=== PATIENT | male | born 1935 | race Caucasian/White ===

== ENCOUNTER 2017-10-04 12:06 | Day surgery (SDC) | payer MEDICARE, OTHER ==
[~2017-10-04 12:06] MED LIST: NORMAL SALINE 1,000 ML IV PRN
--- NOTE | 2017-10-04 13:56 | OR ---
Operative Report - Dictated Report Narrative: Procedure performed: TRUS guided prostate biopsy Anesthesia: IV/Mac Preoperative diagnosis : elevated PSA Postoperative diagnosis: Same Description of procedure: Preoperative antibiotics administered. Consent obtained. Patient positioned in the left lateral decubitus position. Probe inserted. Measurements taken. Prostate volume: 85 grams Biopsies were then obtained from either side directed laterally from the base, mid, and apical portions of the gland. Total biopsies right: 6 Total biopsies left: 6 Findings: Normal seminal vesicles. On the right side mid gland/medial close to probe was a very small focal hyperechoic area. Both sides on the bases were bit hypoechoic compared to rest of gland. No other abnormalities. Biopsies were directed at these areas in the process. EBL: 0cc Specimen: prostate Condition: tolerated procedure Follow up: If negative follow-up will be 6 months with PSA. More than likely at that point I will discontinue PSA screening altogether and simply continue with exam. If positive he will see me sooner for counseling.
[2017-10-04 15:31] VITALS: BP 165/93
== END 2017-10-04 12:07 | disposition home or self-care (01) ==
LOC: AMB 12:06
PROVIDERS: ATTEND Urology
PROC: 0VB07ZX Excision of Prostate, Via Natural or Artificial Opening, Diagnostic (ICD-10-PCS; principal; 2017-10-04 13:00)
DX: R97.20 Elevated prostate specific antigen [PSA] (principal)

== ENCOUNTER 2018-11-11 15:20 | Inpatient (IN) ==
[2018-11-11 15:38] LABS: Hematocrit 44.5 % (42.0-52.0); Hemoglobin 15.5 gm/dL (13.5-18.0); Mean Cell Volume 103.7 fl (78-100); Mean Corpuscular Hemoglobin 36.1 pg (27-31); Mean Corpuscular Hgb Conc 34.8 g/dl (32-36); Mean Platelet Volume 9.9 fl (8-11.3); Neutrophil % 62.7 % (42-75.0); Platelet Count 121 K/mm3 (150-450); Red Blood Count 4.29 M/mm3 (4.7-6.0); Red Cell Distribution Width 13.6 % (11.5-14.0); White Blood Count 6.3 K/mm3 (4.0-10.5)
[2018-11-11 15:55] LABS: ALT 56 U/L (19-67); AST 54 U/L (0-48); Albumin * 3.4 gm/dl (3.4-5.0); Alkaline Phosphatase * 70 U/L (50-170); Anion Gap 15.4 mmol/L (6.8-13.8); BUN/Creatinine Ratio 12.6 (9.0-21.6); Bilirubin, Total 1.3 mg/dL (0.0-1.1); Blood Urea Nitrogen 11 mg/dL (6-23); Ca. Corrected For Albumin 9.2 mg/dL (8.4-10.2); Carbon Dioxide 28.2 mmol/L (24-32.6); Chloride 100 mmol/L (97-106); Glucose * 112 mg/dL (70-110); Potassium 3.6 mmol/L (3.4-4.6); Sodium 140 mmol/L (132-142); Total Protein 6.7 gm/dL (6.2-8.2); Troponin I Less than 0.017 ng/mL (0.00-0.10)
--- NOTE | 2018-11-11 15:56 | ERNOTE ---
Medical Problem HPI - Narrative Date of Service: 11/11/18 - General Chief Complaint: General Assessment Time Seen by Provider: 11/11/18 15:30 Source: patient, family, RN notes reviewed, old records Exam Limitations: dementia - Immun/Allergies/Home Medications Immunizations: IMMUNIZATION HX Immunizations Up to Date No History of Influenza Vaccine Yes Hx Pneumococcal Vaccination No Allergies/Adverse Reactions: Allergies bacitracin [From Triple Antibiotic] Adverse Reaction (Intermediate, Verified 11/11/18 15:26) Other neomycin [From Triple Antibiotic] Adverse Reaction (Intermediate, Verified 11/11/18 15:26) Other redness, itching, burning polymyxin B [From Triple Antibiotic] Adverse Reaction (Intermediate, Verified 11/11/18 15:26) Other Seasonal Allergies Allergy (Intermediate, Uncoded 11/11/18 15:26) rhinitis, watery eyes bruit deodorant Adverse Reaction (Intermediate, Uncoded 11/11/18 15:26) Redness Home Medications: HOME MEDICATIONS cyanocobalamin (vit B-12) 1,000 mcg tablet 1,000 mcg PO DAILY 06/04/18 [Last Taken Unknown] lisinopril 40 mg tablet 40 mg PO DAILY #90 tab 06/20/18 [Last Taken Unknown] tamsulosin 0.4 mg capsule 0.4 mg PO DAILY #90 cap 10/19/18 [Last Taken Unknown] Calcium Carbonate/Vitamin D3 [Calcium 500 mg-Vit D3 600 Unit] 1 tab.chew PO DAILY 11/09/18 [Last Taken Unknown] Vitamin E 1,000 units PO DAILY 11/09/18 [Last Taken Unknown] Amox Tr/Potassium Clavulanate [Augmentin 875-125 Tablet] 875 mg PO Q12H #20 tab 11/10/18 [Last Taken Unknown] - History of Present History Narrative: Patient was in the ER 2 days ago for right sided weakness. Had a stroke workup and seemed to be negative. However diagnosed with sinus infection. Over the past 2 days has become much more weak on the right now unable to walk without significant assist. On Monday he was able to walk with a walker but today even had difficulty pivoting to the ambulance cot. states that the very initially symptoms started on Monday which included some right leg pain. However today denies any pain but rather the profound inability to utilize the right arm and leg effectively. Denies any fever or changes in mentation. Librado greenine dementia. Denies falling. Date (Duration): 11/07/18 Timing: getting worse Modifying Factors - (Worsens): Present: movement Review of Systems - Review of Systems Constitutional: Present: weakness, fatigue, decreased activity level EYE: Present: no symptoms reported ENT: Present: no symptoms reported Respiratory: Present: no symptoms reported Cardiology: Present: no symptoms reported Gastrointestinal/Abdominal: Present: no symptoms reported Genitourinary: Present: no symptoms reported Musculoskeletal: Present: See HPI, other - right sided weakness as described. Has chronic weakness but not usually unilateral. Skin: Present: no symptoms reported Neurological: Present: See HPI, other - denies ever seeing any facial droop. Denies any aphasia or dysphagia. . Absent: headache, dizziness/light- headedness Endocrine: Present: no symptoms reported Hematologic/Lymphatic: Present: no symptoms reported Psych: Present: no symptoms reported Medical History (Last Reviewed 11/09/18 @ 21:14 by Kelli Salazar RN) Anemia Onset Date: Unknown BPH (benign prostatic hyperplasia) Onset Date: Unknown Cervical spondylosis Onset Date: Unknown GERD (gastroesophageal reflux disease) Onset Date: Unknown Hyperlipidemia Onset Date: Unknown Hypertension Onset Date: Unknown Phlebitis and thrombophlebitis of lower extremities Onset Date: Unknown Superficial Vessels Varicose veins of both lower extremities Onset Date: Unknown Surgical History: Surgical History (Last Reviewed 11/09/18 @ 21:14 by Salo Bob DO) Abnormal colonoscopy Onset Date: 01/04/10 Dr. Thayer-hyperplastic polyp benign H/O arthroscopic knee surgery Onset Date: Unknown H/O cystourethroscopy Onset Date: 10/04/06 Dr. Juan Alberto Gao MD-uroflow study done also at this time and on 02/23/07 H/O local excision of skin lesion Onset Date: 11/26/03 Dr. Bajwa-right parietal scalp inflamed, irritatied squamous papilloma- benign Family History: Family History (Last Reviewed 11/09/18 @ 21:14 by Salo Bob DO) Brother , 66 Diabetes Father , 76 CVA (cerebral vascular accident) Heart disease Coronary artery disease Mother , 73 Cancer Social History: Preferred Language Bhutanese Smoking Status Former smoker Abuse History No History of abuse Psych History No pertinent hx Alcohol Use rarely Drug Use none (Last Updated 06/28/18 @ 15:17 by Etta Parish MD) No Social History Section defined Physical Exam - Physical Exam General Appearance: Present: wd/wn, alert, mild distress Head Exam: Present: normal inspection, no evidence of injury Eye Exam: Normal inspection: bilateral, PERRL: bilateral, EOMI: bilateral Ears, Nose, Throat: Present: normal ENT inspection, normal pharynx, other - Tongue midline. No facial droop. Neck: Present: normal inspection, nontender, supple, full range of motion. Absent: carotid bruit Respiratory: Present: no respiratory distress, normal breath sounds, no accessory muscle use, chest nontender, lungs clear Cardiovascular/Chest: Present: regular rate, rhythm, no murmur, normal peripheral pulses, systolic murmur Peripheral Pulses: N=norm/S=strong/W=weak/B=bound/A=absent: Radial (R): Normal, Radial (L): Normal Gastrointestinal/Abdominal: Present: normal bowel sounds, nondistended, soft Back Exam: Present: no CVA tenderness, no vertebral tenderness Extremity Exam: Present: no edema, decreased range of motion, other - Right rubber attacher slightly weaker than the left. No right arm drift. Right leg weak but able to lift it off the bed slightly with much effort. . No drift. Left leg stronger than the right. Pelvis stable and pain free. Neurological Exam: Present: alert, normal mood/affect, no motor/sensory defic its, disoriented to time Skin Exam: Present: normal color, warm/dry Lymphatic Exam: Present: no adenopathy Progress - Results and Orders Patient's Lab Results:: I have reviewed the patient's lab results. - Vital Signs Patient's Vital Signs:: I have reviewed the patient's vital signs. Vital Signs: Vital Signs 11/11/18 15:21 Temperature 36.8 C Pulse Rate 71 Respiratory Rate 14 Blood Pressure 163/91 H O2 Sat by Pulse Oximetry 100 - EKG EKG #1 EKG: NSR, premature ventricular contraction - Progress/Reassessment Chief Complaint: General Assessment Progress:: Improved - NIH 1. However patient cannot ambulate without assist of 2 plus a walker. Patient drags the right foot. No other neurologic findings. Patient cannot safely go home at this time. No other alternatives at this time except for obs with plan of care in the AM. - Transfer of Care Additional Notes: Discussed patient with Dr. Negrete who will accept patient for patient safety and inability to ambulate. Patient will need an MRI brain as recommended by radiology on Monday. Unable for any acute interventions since event occured on at least by Monday. Departure Clinical Impression: CVA, old, ataxia - Departure Disposition: Still a patient Condition: Stable Referrals: Etta Parish MD [Primary Care Provider] -
[2018-11-11 16:50] LABS: Urine Appearance Clear (CLEAR); Urine Color Yellow
[2018-11-11 16:51] LABS: Urine Bilirubin Negative (NEGATIVE)
[2018-11-11 16:52] LABS: Urine Blood Negative /ul (NEGATIVE); Urine Ketone 5 mg/dL (NEGATIVE)
[2018-11-11 16:53] LABS: Urine Nitrite Negative (NEGATIVE); Urine Protein Negative (NEGATIVE); Urine Specific Gravity 1.015 SP.GR. (1.005-1.030); Urine Urobilinogen Normal (NORMAL); Urine pH 7.5 pH (5.0-7.0)
[2018-11-11 16:54] LABS: Urine Bacteria None Seen; Urine RBC None Seen /hpf (0-5); Urine WBC 0-5 /hpf (0-5)
[2018-11-11] MEDS: ASPIRIN 325 MG TABLET.DR PO SCH (21:02)
--- NOTE | 2018-11-11 23:56 | HP ---
Chief Complaint - Chief Complaint Date of Service: 11/11/18 Time of Service: 23:55 Chief Complaint: Right sided weakness, difficulty speaking History of Present Illness: Shaheed is an 83 yo male. History is complicated by speech deficit which causes garbled speech and difficulty with word finding. Patient first noted right leg dragging a few days ago, then right arm weakness, and garbled speech. He presented to the ER today with worsening and persistent symptoms. Head CT performed in the ER showed no acute abnormality. Shaheed denies difficulty swallowing. Medical History (Last Reviewed 11/11/18 @ 21:30 by Mariel Conde, REJI) Anemia Onset Date: Unknown BPH (benign prostatic hyperplasia) Onset Date: Unknown Cervical spondylosis Onset Date: Unknown GERD (gastroesophageal reflux disease) Onset Date: Unknown Hyperlipidemia Onset Date: Unknown Hypertension Onset Date: Unknown Phlebitis and thrombophlebitis of lower extremities Onset Date: Unknown Superficial Vessels Varicose veins of both lower extremities Onset Date: Unknown Surgical History: Surgical History (Last Updated 11/11/18 @ 21:53 by Mariel Conde RN) History of total right knee replacement (TKR) Abnormal colonoscopy Onset Date: 01/04/10 Dr. Thayer-hyperplastic polyp benign H/O arthroscopic knee surgery Onset Date: Unknown H/O cystourethroscopy Onset Date: 10/04/06 Dr. Juan Alberto Gao MD-uroflow study done also at this time and on 02/23/07 H/O local excision of skin lesion Onset Date: 11/26/03 Dr. Bajwa-right parietal scalp inflamed, irritatied squamous papilloma- benign Family History: Family History (Last Reviewed 11/11/18 @ 21:30 by Mariel Conde RN) Brother , 66 Diabetes Father , 76 CVA (cerebral vascular accident) Heart disease Coronary artery disease Mother , 73 Cancer Social History: Patient Lives/Resources With Spouse Utilized Preferred Language Mohawk Do you have any worship or No cultural preference? Smoking Status Former smoker Have you smoked in the past 12 No months Abuse History No History of abuse Psych History No pertinent hx Alcohol Use rarely Drug Use none (Last Updated 06/28/18 @ 15:17 by Etta Parish MD) No Social History Section defined Review Of Systems (GEN) - Review of Systems Generalized/Overall Review: Present: Weakness. Absent: Chills, Fever EENTM: Present: No Symptoms Reported Respiratory: Absent: Cough, Shortness of Breath Cardiac: Absent: Chest Pain, Edema, Palpitations, Syncope Abdominal: Absent: Nausea, Vomiting, Hematemesis, Abdominal Pain, Constipation, Diarrhea Genitourinary: Present: No Symptoms Reported Musculoskeletal: Present: No Symptoms Reported Neurological: Present: Weakness. Absent: Numbness, Parasthesia, Tingling, Tremors Skin: Present: No Symptoms Reported Immunizations: IMMUNIZATION HX Immunizations Up to Date No History of Influenza Vaccine Yes Hx Pneumococcal Vaccination No Allergies/Adverse Reactions: Allergies Allergy/AdvReac Type Severity Reaction Status Date / Time bacitracin AdvReac Intermediate Other Verified 11/11/18 15:26 [From Triple Antibiotic] neomycin AdvReac Intermediate Other Verified 11/11/18 15:26 [From Triple Antibiotic] polymyxin B AdvReac Intermediate Other Verified 11/11/18 15:26 [From Triple Antibiotic] Seasonal Allergies Allergy Intermediate rhinitis, Uncoded 11/11/18 15:26 watery eyes bruit deodorant AdvReac Intermediate Redness Uncoded 11/11/18 15:26 Home Medications: HOME MEDICATIONS cyanocobalamin (vit B-12) 1,000 mcg tablet 1,000 mcg PO DAILY 06/04/18 [Last Taken 11/11/18 08:00] lisinopril 40 mg tablet 40 mg PO DAILY #90 tab 06/20/18 [Last Taken 11/11/18 08:00] tamsulosin 0.4 mg capsule 0.4 mg PO DAILY #90 cap 10/19/18 [Last Taken 11/11/18 08:00] Calcium Carbonate/Vitamin D3 [Calcium 500 mg-Vit D3 600 Unit] 1 tab.chew PO DAILY 11/09/18 [Last Taken 11/11/18 08:00] Vitamin E 1,000 units PO DAILY 11/09/18 [Last Taken 11/11/18 08:00] Amox Tr/Potassium Clavulanate [Augmentin 875-125 Tablet] 875 mg PO Q12H #20 tab 11/10/18 [Last Taken 11/11/18 08:00] Preservision Areds 2 Softgel 1 cap PO DAILY 11/11/18 [Last Taken 11/11/18 08:00] Exam - Exam Vital Signs: Vital Signs - Last Taken Temp 37 C 11/11/18 22:32 Pulse 77 11/11/18 22:32 Resp 14 11/11/18 22:32 BP 149/80 11/11/18 22:32 Pulse Ox 94 11/11/18 22:32 Constitutional: Present: Alert, Oriented x3, Cooperative ENT Exam: Present: other - Garbled speech Respiratory: Present: lungs clear, normal breath sounds Cardiovascular/Chest: Present: regular rate, rhythm, no murmur Abdomen: Present: Normal bowel sounds, soft, nontender, nondistended, no hepatospenomegaly, no masses Extremity: Present: no pedal edema, normal capillary refill Skin Exam: Present: normal color, warm/dry, no cyanosis Neurologic: Present: [place] he[place] II-XII nml as tested, no motor/sensory deficits, alert, normal mood/affect, oriented x 3, other - Garbled speech and difficulty with word finding Appearance: Present: appropriate appearance, appropriate insight Eye contact: Present: cooperative, good eye contact. Absent: normal speech Thoughts: Present: normal thought pattern, no apparent hallucination Diagnostic Studies: Abnormal Lab Results 11/11/18 11/11/18 Range/Units 15:20 15:20 RBC 4.29 L (4.7-6.0) M/mm3 MCV 103.7 H (78-100) fl MCH 36.1 H (27-31) pg Plt Count 121 L (150-450) K/mm3 Lymphocytes % 16.8 L (20-51) % Monocytes % 17.6 H (0.0-9) % Lymphocytes # 1.06 L (1.5-3.5) k/mm3 Monocytes # 1.1 H (0.0-1.0) k/mm3 Anion Gap 15.4 H (6.8-13.8) mmol/L Random Glucose 112 H (70-110) mg/dL Total Bilirubin 1.3 H (0.0-1.1) mg/dL AST 54 H (0-48) U/L Laboratory Results WBC 6.3 K/mm3 (4.0-10.5) 11/11/18 15:20 RBC 4.29 M/mm3 (4.7-6.0) L 11/11/18 15:20 Hgb 15.5 gm/dL (13.5-18.0) 11/11/18 15:20 Hct 44.5 % (42.0-52.0) 11/11/18 15:20 MCV 103.7 fl (78-100) H 11/11/18 15:20 MCH 36.1 pg (27-31) H 11/11/18 15:20 MCHC 34.8 g/dl (32-36) 11/11/18 15:20 RDW 13.6 % (11.5-14.0) 11/11/18 15:20 Plt Count 121 K/mm3 (150-450) L 11/11/18 15:20 MPV 9.9 fl (8-11.3) 11/11/18 15:20 Immature Gran % (Auto) 0.30 % (0.001-0.429) 11/11/18 15:20 Immature Gran # (Auto) 0.02 K/mm3 (0.000-0.0310) 11/11/18 15:20 Neutrophils % 62.7 % (42-75.0) 11/11/18 15:20 Lymphocytes % 16.8 % (20-51) L 11/11/18 15:20 Monocytes % 17.6 % (0.0-9) H 11/11/18 15:20 Eosinophils % 2.4 % (0.0-3.0) 11/11/18 15:20 Basophils % 0.2 % (0.0-1.0) 11/11/18 15:20 Nucleated RBC % 0.0 k/mm3 (0-1) 11/11/18 15:20 Neutrophils # 4.0 K/mm3 (1.3-6.0) 11/11/18 15:20 Lymphocytes # 1.06 k/mm3 (1.5-3.5) L 11/11/18 15:20 Monocytes # 1.1 k/mm3 (0.0-1.0) H 11/11/18 15:20 Eosinophils # 0.2 k/mm3 (0.0-0.7) 11/11/18 15:20 Absolute Basophils 0.0 k/mm3 (0.0-0.1) 11/11/18 15:20 Sodium 140 mmol/L (132-142) 11/11/18 15:20 Plasma Sodium 140 mmol/L (130-142) 11/11/18 15:20 Potassium 3.6 mmol/L (3.4-4.6) 11/11/18 15:20 Chloride 100 mmol/L (97-106) 11/11/18 15:20 Carbon Dioxide 28.2 mmol/L (24-32.6) 11/11/18 15:20 Anion Gap 15.4 mmol/L (6.8-13.8) H 11/11/18 15:20 BUN 11 mg/dL (6-23) 11/11/18 15:20 Creatinine 0.87 mg/dL (0.4-1.4) 11/11/18 15:20 Est GFR (Non-Af Amer) 89 mL/min (60-130) 11/11/18 15:20 BUN/Creatinine Ratio 12.6 (9.0-21.6) 11/11/18 15:20 Random Glucose 112 mg/dL (70-110) H 11/11/18 15:20 Calcium 9.0 mg/dL (7.9-10.9) 11/11/18 15:20 Calcium Adj for Albumin 9.2 mg/dL (8.4-10.2) 11/11/18 15:20 Total Bilirubin 1.3 mg/dL (0.0-1.1) H 11/11/18 15:20 AST 54 U/L (0-48) H 11/11/18 15:20 ALT 56 U/L (19-67) 11/11/18 15:20 Alkaline Phosphatase 70 U/L (50-170) 11/11/18 15:20 Troponin I Less than 0.017 ng/mL (0.00-0.10) 11/11/18 15:20 Total Protein 6.7 gm/dL (6.2-8.2) 11/11/18 15:20 Albumin 3.4 gm/dl (3.4-5.0) 11/11/18 15:20 Urine Color Yellow 11/11/18 16:24 Urine Appearance Clear (CLEAR) 11/11/18 16:24 Urine pH 7.5 pH (5.0-7.0) 11/11/18 16:24 Ur Specific [place] 1.015 SP.GR. (1.005-1.030) 11/11/18 16:24 Urine Protein Negative mg/dL (NEGATIVE) 11/11/18 16:24 Urine Glucose (UA) Negative mg/dL (NEGATIVE) 11/11/18 16:24 Urine Ketones 5 mg/dL (NEGATIVE) 11/11/18 16:24 Urine Blood Negative /ul (NEGATIVE) 11/11/18 16:24 Urine Nitrate Negative (NEGATIVE) 11/11/18 16:24 Urine Bilirubin Negative mg/dl (NEGATIVE) 11/11/18 16:24 Urine Urobilinogen Normal EU/dl (NORMAL) 11/11/18 16:24 Ur Leukocyte Esterase Negative /ul (NEGATIVE) 11/11/18 16:24 Urine RBC None seen /hpf (0-5) 11/11/18 16:24 Urine WBC 0-5 /hpf (0-5) 11/11/18 16:24 Ur Epithelial Cells 0-5 /hpf (0-5) 11/11/18 16:24 Urine Bacteria None seen (NONE) 11/11/18 16:24 Urine Culture Comments No culture indicated 11/11/18 16:24 Assessment/Plan - Narrative Narrative: Shaheed is an 83 yo male with garbled speech and previous right sided weakness. Bedside exam currently shows equal strength, however his speech remains garbled. Head CT was negative for acute change. Will plan to get brain MRI tomorrow to evaluate for Stroke. Will consult PT, OT, and ST. Based on presenting symptoms I suspect acute Stroke as the cause. - Assessment/Plan (1) Dysarthria Problem: Acute (2) Weakness Problem: Acute
--- NOTE | 2018-11-12 08:52 | PN ---
Subjective - Date and Time Seen Date: 11/12/18 Time: 08:39 Subjective Narrative: AAO x 1. says his right leg is weak. confused most of the times but he is trying to answer your questions and the answers are coming out wrong and then he says he is confused lately. Objective - Review of Systems Generalized/Overall Review: Reports: Weakness. Denies: Chills, Fever EENTM: Denies: Blurred Vision Respiratory: Denies: Cough, Shortness of Breath Cardiac: Denies: Chest Pain, Edema, Palpitations Abdominal: Denies: Nausea, Vomiting Genitourinary Symptoms: Denies: Urgency, Frequency Musculoskeletal Complaints: Denies: Joint Pain, Back Pain Neurological: Reports: Weakness. Denies: Headache Skin: Denies: Lesions, Rash Endocrine: Denies: Intolerance to Cold, Intolerance to Heat Misc: All systems neg except as marked - May be unreliable due to his on and off confusion - Vitals Vitals: Last Vital Signs Temp 36.4 C 11/12/18 06:46 Pulse 69 11/12/18 06:46 Resp 20 11/12/18 06:46 BP 147/93 H 11/12/18 06:46 Pulse Ox 94 11/12/18 06:46 - Abnormal Lab Findings Abnormal Lab Findings: Abnormal Lab Results 11/11/18 11/11/18 Range/Units 15:20 15:20 RBC 4.29 L (4.7-6.0) M/mm3 MCV 103.7 H (78-100) fl MCH 36.1 H (27-31) pg Plt Count 121 L (150-450) K/mm3 Lymphocytes % 16.8 L (20-51) % Monocytes % 17.6 H (0.0-9) % Lymphocytes # 1.06 L (1.5-3.5) k/mm3 Monocytes # 1.1 H (0.0-1.0) k/mm3 Anion Gap 15.4 H (6.8-13.8) mmol/L Random Glucose 112 H (70-110) mg/dL Total Bilirubin 1.3 H (0.0-1.1) mg/dL AST 54 H (0-48) U/L - Exam Constitutional: Present: Alert - AAO x 1, Cooperative, Elderly ENT Exam: Present: hearing grossly normal Neck: Present: supple Respiratory: Present: normal breath sounds, No rales, No wheezing Cardiovascular/Chest: Present: regular rate, rhythm, no edema, no JVD Abdomen: Present: Normal bowel sounds, soft, nontender, nondistended Extremity: Present: no pedal edema, no calf tenderness Neurologic: 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 continue with ASA, add statin , restart his BP medication and will get an MRI. if positive for acute to subacute CVA will change him to acute status . we will need to do CUS and Echo with bubble study then as inpatient. will get PT/OT/ST eval and treatment. (2) Sinusitis, acute Problem: Acute Qualifiers: Sinusitis location: maxillary Recurrence: not specified as recurrent Qualified Code(s): J01.00 - Acute maxillary sinusitis, unspecified Narrative: continue with antibiotics (3) BPH (benign prostatic hyperplasia) Problem: Chronic Qualifiers: Lower urinary tract symptom presence: symptoms absent Qualified Code(s): N40.0 - Benign prostatic hyperplasia without lower urinary tract symptoms Narrative: continue with home medications (4) Hyperlipidemia Problem: Chronic Qualifiers: Hyperlipidemia type: mixed hyperlipidemia Qualified Code(s): E78.2 - Mixed hyperlipidemia Narrative: will put him on a statin. (5) Hypertension Problem: Chronic Qualifiers: Hypertension type: essential hypertension Qualified Code(s): I10 - Essential (primary) hypertension Narrative: continue with home medications
[2018-11-12] MEDS ORDERED: LISINOPRIL 40 MG TABLET PO SCH (09:00)
[2018-11-12 09:18] LABS: Chol/HDL Risk Ratio 2.6 mg/dL (3.3-5.0)
[2018-11-12] MEDS: CALCIUM CARBONATE/VITAMIN D3 1 TAB TABLET PO SCH (09:44)
[2018-11-12] MEDS: AMOX TR/POTASSIUM CLAVULANATE 875 MG TABLET PO SCH ×2 (09:44→20:49)
[2018-11-12] MEDS: CYANOCOBALAMIN 1,000 MCG TABLET PO SCH (09:44)
[2018-11-12] MEDS: BETA-CAROTENE(A) W-C , E/MIN 1 TAB TABLET PO SCH (09:45)
[2018-11-12] MEDS: LISINOPRIL 20 MG TABLET PO SCH (09:45)
[2018-11-12] MEDS ORDERED: TAMSULOSIN HCL 0.4 MG CAP.SR.24H PO SCH (17:00)
[2018-11-12] MEDS ORDERED: LISINOPRIL 20 MG TABLET PO ONE (17:45)
[2018-11-12] MEDS: ASPIRIN 325 MG TABLET.DR PO SCH (20:50)
[2018-11-12] MEDS ORDERED: ROSUVASTATIN CALCIUM 20 MG TABLET PO SCH (21:00)
[2018-11-13] MEDS ORDERED: LORazepam 2 MG/ML DISP.SYRIN IV ONE (00:53)
--- NOTE | 2018-11-13 08:00 | PN ---
Subjective - Date and Time Seen Date: 11/13/18 Time: 07:54 Subjective Narrative: patient is sitting on recliner- able to raise right hand and leg against gravity. 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 speech a little bit better. Objective - Review of Systems Generalized/Overall Review: Reports: Weakness. Denies: Chills, Fever EENTM: Denies: Blurred Vision Respiratory: Denies: Cough, Shortness of Breath Cardiac: Denies: Chest Pain, Edema, Palpitations Abdominal: Denies: Nausea, Vomiting Genitourinary Symptoms: Denies: Urgency, Frequency Musculoskeletal Complaints: Denies: Joint Pain, Back Pain Neurological: Reports: Weakness. Denies: Headache Skin: Reports: Dryness. Denies: Lesions Endocrine: Denies: Intolerance to Cold, Intolerance to Heat - Vitals Vitals: Last Vital Signs Temp 36.8 C 11/12/18 23:00 Pulse 86 11/13/18 02:00 Resp 16 11/12/18 23:00 BP 126/80 11/12/18 23:00 Pulse Ox 94 11/12/18 23:00 - Abnormal Lab Findings Abnormal Lab Findings: Abnormal Lab Results 11/11/18 Range/Units 15:29 HDL Cholesterol 75 H (40-60) mg/dL Cholesterol/HDL Ratio 2.6 L (3.3-5.0) mg/dL - Exam Constitutional: Present: Alert - AAO x 2, Cooperative, Elderly ENT Exam: Present: hearing grossly normal Neck: Present: supple Respiratory: Present: normal breath sounds, No rales, No wheezing Cardiovascular/Chest: Present: regular rate, rhythm, no JVD, no murmur Abdomen: Present: Normal bowel sounds, soft, nontender, nondistended Extremity: Present: no pedal edema, no calf tenderness Neurologic: Present: churn tender II-XII nml as tested, motor weakness - right hemiparesis, sensory deficit - right Thoughts: Absent: auditory hallucinations, tactile hallucinations, visual hallucinations Assessment/Plan - Problems/Diagnosis (1) Thalamic infarct, acute Problem: Acute Narrative: left, likely lacunar stroke. for CUS and Echo today with bubble study. telemetry showing NSR. with right hemiresidual. continue with current management-ASA. Lisinopril, Crestor, PT/OT/ST. possible in patient rehab at [facility]. (2) Sinusitis, acute Problem: Acute Qualifiers: Sinusitis location: maxillary Recurrence: not specified as recurrent Qualified Code(s): J01.00 - Acute maxillary sinusitis, unspecified (3) BPH (benign prostatic hyperplasia) Problem: Chronic Qualifiers: Lower urinary tract symptom presence: symptoms absent Qualified Code(s): N40.0 - Benign prostatic hyperplasia without lower urinary tract symptoms Narrative: continue with tamsulosin (4) Hyperlipidemia Problem: Chronic Qualifiers: Hyperlipidemia type: mixed hyperlipidemia Qualified Code(s): E78.2 - Mixed hyperlipidemia Narrative: continue with crestor (5) Hypertension Problem: Chronic Qualifiers: Hypertension type: essential hypertension Qualified Code(s): I10 - Essential (primary) hypertension Narrative: continue with lisinopril
[2018-11-13] MEDS: CALCIUM CARBONATE/VITAMIN D3 1 TAB TABLET PO SCH (08:25)
[2018-11-13] MEDS: BETA-CAROTENE(A) W-C , E/MIN 1 TAB TABLET PO SCH (08:25)
[2018-11-13] MEDS: AMOX TR/POTASSIUM CLAVULANATE 875 MG TABLET PO SCH (08:25)
[2018-11-13] MEDS: LISINOPRIL 20 MG TABLET PO SCH (08:26)
[2018-11-13] MEDS: CYANOCOBALAMIN 1,000 MCG TABLET PO SCH (08:26)
--- NOTE | 2018-11-13 11:20 | DS ---
(1) Thalamic infarct, acute Diagnosis(s): left Problem: Acute (2) Sinusitis, acute Problem: Acute Qualifiers: Sinusitis location: maxillary Recurrence: not specified as recurrent Qualified Code(s): J01.00 - Acute maxillary sinusitis, unspecified (3) BPH (benign prostatic hyperplasia) Problem: Chronic Qualifiers: Lower urinary tract symptom presence: symptoms absent Qualified Code(s): N40.0 - Benign prostatic hyperplasia without lower urinary tract symptoms (4) Hyperlipidemia Problem: Chronic Qualifiers: Hyperlipidemia type: mixed hyperlipidemia Qualified Code(s): E78.2 - Mixed hyperlipidemia (5) Hypertension Problem: Chronic Qualifiers: Hypertension type: essential hypertension Qualified Code(s): I10 - Essential (primary) hypertension Description of Stay: Shaheed Francis, is an [age] year old, white male, with PMHx of Hypertention, BPH, Hyperlipidemia, who was admitted on 11/11/2018 for stroke like symptoms and ataxia. 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 He went to our ER where his CTS showed no acute intracranial process except for sinusitis. He was given antibiotics and ASA and discharged home. The following day he noticed some right upper extremity weakness and garbling of his speech. He started using a walker to help him move around. On the day of admission his right side weakness got worse so much so he had difficulty of pivoting for transfer associated with instability. He was brought back to the ED and was admitted. His EKG showed NSR with PVC. He was started on ASA, statin, and his lisinorpil was continued. His MRI the following day showed an acute infarct on the left thalamic area. PT/OT/ST were consulted . They recommended in patient rehabilitation. His CUS showed mild bilateral atherosclerotic plaques with less than 25 % stenosis. His Echo showed. moderate concentric LVH, EF 50-55%, normal wall motion. normal RSVP, Aortic sclerosis w/o stenosis, negative air bubble study but ARLEY better evaluate it. Procedures Performed: none Results and Findings: Lab Pending Results 11/11/18 15:20: WBC 6.3, RBC 4.29 L, Hgb 15.5, Hct 44.5, MCV 103.7 H, MCH 36.1 H, MCHC 34.8, RDW 13.6, Plt Count 121 L, MPV 9.9, Immature Gran % (Auto) 0.30, Immature Gran # (Auto) 0.02, Neutrophils % 62.7, Lymphocytes % 16.8 L, Monocytes % 17.6 H, Eosinophils % 2.4, Basophils % 0.2, Nucleated RBC % 0.0, Neutrophils # 4.0, Lymphocytes # 1.06 L, Monocytes # 1.1 H, Eosinophils # 0.2, Absolute Basophils 0.0 11/11/18 15:20: Sodium 140, Plasma Sodium 140, Potassium 3.6, Chloride 100, Carbon Dioxide 28.2, Anion Gap 15.4 H, BUN 11, Creatinine 0.87, Est GFR (Non-Af Amer) 89, BUN/Creatinine Ratio 12.6, Random Glucose 112 H, Calcium 9.0, Calcium Adj for Albumin 9.2, Total Bilirubin 1.3 H, AST 54 H, ALT 56, Alkaline Phosphatase 70, Troponin I Less than 0.017, Total Protein 6.7, Albumin 3.4 11/11/18 15:29: Triglycerides 133, Cholesterol 200, LDL Cholesterol 98, VLDL Cholesterol 27, HDL Cholesterol 75 H, Cholesterol/HDL Ratio 2.6 L 11/11/18 16:24: Urine Color Yellow, Urine Appearance Clear, Urine pH 7.5, Ur Specific [place] 1.015, Urine Protein Negative, Urine Glucose (UA) Negative, Urine Ketones 5, Urine Blood Negative, Urine Nitrate Negative, Urine Bilirubin Negative, Urine Urobilinogen Normal, Ur Leukocyte Esterase Negative, Urine RBC None seen, Urine WBC 0-5, Ur Epithelial Cells 0-5, Urine Bacteria None seen, Urine Culture Comments No culture indicated Discharge Location: [facility] Disposition: Inpatient Rehab Facility Condition: Stable Discharge Activity: Activity as tolerated Discharge Diet: Low salt Mcfp Therapy: Physicial Therapy, Occupation Therapy, Speech Therapy Referrals: Etta Parish MD [Primary Care Provider] - Additional Patient Instructions (free text): Follow up with PCP when discharged from rehab center. Prescriptions (Any new or edited meds): Aspirin [Aspirin Enteric Coated] 325 mg PO HS #30 tablet. Lisinopril [Zestril] 20 mg PO BID #90 tab Rosuvastatin Calcium [Crestor] 20 mg PO HS #30 tablet Complete Home Medications List: Complete Home Medication List: cyanocobalamin (vit B-12) 1,000 mcg tablet 1,000 mcg PO DAILY 06/04/18 tamsulosin 0.4 mg capsule 0.4 mg PO DAILY #90 cap 10/19/18 Calcium Carbonate/Vitamin D3 [Calcium 500 mg-Vit D3 600 Unit] 1 tab.chew PO DAILY 11/09/18 Vitamin E 1,000 units PO DAILY 11/09/18 Amox Tr/Potassium Clavulanate [Augmentin 875-125 Tablet] 875 mg PO Q12H #20 tab 11/10/18 Preservision Areds 2 Softgel 1 cap PO DAILY 11/11/18 Aspirin [Aspirin Enteric Coated] 325 mg PO HS #30 tablet. 11/13/18 Lisinopril [Zestril] 20 mg PO BID #90 tab 11/13/18 Rosuvastatin Calcium [Crestor] 20 mg PO HS #30 tablet 11/13/18
[2018-11-13 13:36] VITALS: BP 156/93
--- NOTE | 2018-11-14 15:32 | ECHO ---
This report is available in the EMR
== END 2018-11-13 13:53 | disposition short-term general hospital (02) | DRG 65 ==
LOC: ER 15:20 → MS 15:20
PROVIDERS: ADMIT Family Medicine; ATTEND Internal Medicine
DX: M47.812 Spondylosis without myelopathy or radiculopathy, cervical region; I63.81 Other cerebral infarction due to occlusion or stenosis of small artery; I69.322 Dysarthria following cerebral infarction; I69.393 Ataxia following cerebral infarction; R29.701 NIHSS score 1; I11.9 Hypertensive heart disease without heart failure; Z87.891 Personal history of nicotine dependence; F03.90 Unspecified dementia, unspecified severity, without behavioral disturbance, psychotic disturbance, mood disturbance, and anxiety; K21.9 Gastro-esophageal reflux disease without esophagitis; Z86.718 Personal history of other venous thrombosis and embolism; Z88.1 Allergy status to other antibiotic agents; N40.0 Benign prostatic hyperplasia without lower urinary tract symptoms; I83.93 Asymptomatic varicose veins of bilateral lower extremities; E78.2 Mixed hyperlipidemia; G81.91 Hemiplegia, unspecified affecting right dominant side; I35.8 Other nonrheumatic aortic valve disorders; J01.00 Acute maxillary sinusitis, unspecified; I49.3 Ventricular premature depolarization
CPT/HCPCS: 36415; 70450; 70551; 71020; 71046; 80053; 80061; 81001; 84484; 85025; 92522; 93005; 93306; 93880; 97110; 97116; 97162; 97166; 97530; 99283; 99285

== ENCOUNTER 2021-03-10 16:29 | Observation (INO) ==
--- NOTE | 2021-03-10 17:10 | ERNOTE ---
Neuro HPI ER Record Date of Service: 03/10/21 Presenting Symptoms: weakness, facial droop, impaired speech, confusion, dif ficulty walking, difficulty standing Time Seen by Provider: 03/10/21 16:48 Source: family Exam Limitations: no limitations Immunizations: IMMUNIZATION HX Immunizations Up to Date Yes Immunizations Comment had both covid shots History of Influenza Vaccine Yes Hx Pneumococcal Vaccination No Allergies/Adverse Reactions: Allergies Allergy/AdvReac Type Severity Reaction Status Date / Time bacitracin AdvReac Intermediate Other Verified 12/15/20 15:34 [From Triple Antibiotic] neomycin AdvReac Intermediate Other Verified 12/15/20 15:34 [From Triple Antibiotic] polymyxin B AdvReac Intermediate Other Verified 12/15/20 15:34 [From Triple Antibiotic] Seasonal Allergies Allergy Intermediate rhinitis, Uncoded 10/28/20 18:31 watery eyes bruit deodorant AdvReac Intermediate Redness Uncoded 10/28/20 18:31 Home Medications: HOME MEDICATIONS cyanocobalamin (vitamin B-12) 1,000 mcg tablet 1,000 mcg PO DAILY 06/04/18 [Last Taken 11/11/18 08:00] Calcium Carbonate/Vitamin D3 [Calcium 500 mg-Vit D3 600 Unit] 1 tab.chew PO DAILY 11/09/18 [Last Taken 11/11/18 08:00] Vitamin E 1,000 units PO DAILY 11/09/18 [Last Taken 11/11/18 08:00] Preservision Areds 2 Softgel 1 cap PO DAILY 11/11/18 [Last Taken 11/11/18 08:00] lisinopril 20 mg tablet 20 mg PO DAILY #90 tab 09/22/20 [Last Taken Unknown] rosuvastatin 20 mg tablet 20 mg PO HS #90 tab 09/22/20 [Last Taken Unknown] Donepezil HCl 10 mg PO HS 10/28/20 [Last Taken Unknown] clopidogrel 75 mg tablet 75 mg PO DAILY #30 tab 11/18/20 [Last Taken Unknown] tamsulosin 0.4 mg capsule 0.4 mg PO DAILY #90 cap 11/23/20 [Last Taken Unknown] - History of Present Illness Narrative: 85-year-old male according to he was last well seen at 1230 this afternoon when she went to work when she arrived at home after 4:00 she noticed that his face was ashen and leavitt and he had left facial droop. Patient has a history of prior strokes one last year and 1 year before which his said was that the biggest 1. Date (Duration): 03/10/21 Time (Timing): 17:23 Last Date Known Well: 03/10/21 Last Time Known Well: 12:00 Onset: >3 hours Severity: moderate - Character of Deficits New weakness: Present: LLE, facial (lt) Altered sensation: Present: LLE Additional Deficits: Present: impaired speech, decrease ability to stand, decrease ability to walk Baseline Cognition: Present: alert but disoriented to time Baseline Gait: Present: uses a cane/walker Review of Systems - Review of Systems Constitutional: Present: weakness EYE: Present: no symptoms reported ENT: Present: no symptoms reported Respiratory: Present: no symptoms reported Gastrointestinal/Abdominal: Present: no symptoms reported Genitourinary: Present: no symptoms reported Musculoskeletal: Present: no symptoms reported Skin: Present: no symptoms reported Neurological: Present: dizziness/light-headedness, weakness Endocrine: Present: no symptoms reported Hematologic/Lymphatic: Present: no symptoms reported All Other Systems: All systems neg except as marked Medical History (Last Reviewed 03/10/21 @ 17:26 by Livan Arias MD) COVID-19 vaccine administered (Acute) Anemia Onset Date: Unknown BPH (benign prostatic hyperplasia) Onset Date: Unknown Cervical spondylosis Onset Date: Unknown GERD (gastroesophageal reflux disease) Onset Date: Unknown Hyperlipidemia Onset Date: Unknown Hypertension Onset Date: Unknown Phlebitis and thrombophlebitis of lower extremities Onset Date: Unknown Superficial Vessels Varicose veins of both lower extremities Onset Date: Unknown Surgical History: Surgical History (Last Reviewed 03/10/21 @ 17:26 by Livan Arias MD) Abnormal colonoscopy Onset Date: 01/04/10 Dr. Thayer-hyperplastic polyp benign H/O arthroscopic knee surgery Onset Date: Unknown H/O cystourethroscopy Onset Date: 10/04/06 Dr. Juan Alberto Gao MD-uroflow study done also at this time and on 02/23/07 H/O local excision of skin lesion Onset Date: 11/26/03 Dr. 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) Family History: Family History (Last Reviewed 03/10/21 @ 16:40 by Pamela Urrutia RN) Brother , 66 Diabetes Father , 76 CVA (cerebral vascular accident) Heart disease Coronary artery disease Mother , 73 Cancer Social History: (Last Reviewed 03/10/21 @ 16:40 by Pamela Urrutia RN) Social History: household members: spouse current occupational status: retired Service: Yes branch: [employer] Tobacco: Smoking Status: Former smoker Alcohol: alcohol intake: current alcohol intake frequency: 3 or more drinks per day details: 20-28 drinks/wk for 50 years Substance Use: substance use type: does not use Dietary Habits: caffeine: Yes Personal Safety: victim of physical abuse: No victim of emotional abuse: No Physical Exam - Physical Exam General Appearance: Present: wd/wn, alert, moderate distress Head Exam: Present: normal inspection Eye Exam: Normal inspection: bilateral Ears, Nose, Throat: Present: other - Left facial droop, tongue deviated slightly to the right slurred speech Neck: Present: normal inspection, nontender Respiratory: Present: no respiratory distress Cardiovascular/Chest: Present: regular rate, rhythm Peripheral Pulses: N=norm/S=strong/W=weak/B=bound/A=absent: Carotid (R): Normal, Carotid (L): Normal Gastrointestinal/Abdominal: Present: normal bowel sounds Back Exam: Present: normal inspection Extremity Exam: Present: normal inspection, other - Weakness in the lower extremities Neurological Exam: Present: alert, facial droop, motor weakness, disoriented to time Skin Exam: Present: normal color Lymphatic Exam: Present: no adenopathy Lenora Coma Scale - Assess Eye Opening: Spontaneous Motor: Obeys Commands Verbal: Confused - Total Coma Scale Total: 14 Initial Stroke Assessment - Date/Time of assessment Stroke Scale Date: 03/10/21 Stroke Scale Time: 17:00 - NIH Stroke Scale Level of Consciousness: Alert LOC Questions (Year and Age): Answers neither correctly LOC Commands (open/close eyes/fist): Performs both correctly Lateral Gaze Paresis: None Visual Field Loss: No visual loss Facial Palsy: Partial facial paralysis Right Arm Motor (10 sec hold): No drift Left Arm Motor (10 sec hold): No drift Right Leg Motor (5 sec hold): Not testable Left Leg Motor (5 sec hold): Not testable Limb Ataxia (finger/nose heel/jorge): Present in 2 limbs If present, ataxia in:: Right leg, Left leg Sensory Loss (pinprick arms/legs/face): No sensory loss Language Aphasia (description/naming/reading): No aphasia; normal Dysarthria (speech clarity): Slurring, intelligeble Neglect Inattention (visual/tactile/auditory/spatial/person): No neglect Initial Stroke Scale Score:: 7 - Stroke Risk Assessment Stroke Risk Assessment Level: 5-15 Mild-Mod Severe Imp Stroke Inclusion/Exclusion Cri - Inclusion Questions: Yes Onset of symptoms <3 1/2 hours of admission to ETC: No - Exclusion Questions: Major symptoms rapidly improving: No Seizure at onset of stroke: No SBP>185; DBP>110 at time treatment is to begin: No Patient received Heparin or Coumadin within 48 hours: No Patient has elevated PTT or Protime/INR: No Stroke, head injury, major surgery, serious trauma in 3 mon.: No Previous intracranial hemmorhage: No Recent TX: No Known AV malformation or aneurysm: No Blood glucose <50mg/dl or >400mg/dl: No NIHSS Score <4 or >22 performed by physician: No - Total NIHSS Score Score:: 7 Secondary Stroke Assessment - Date/Time of assessment Stroke Scale Time: 17:33 - NIH Stroke Scale Level of Consciousness: Alert LOC Questions (Year and Age): Answers neither correctly LOC Commands (open/close eyes/fist): Performs both correctly Lateral Gaze Paresis: None Visual Field Loss: No visual loss Facial Palsy: Minor paralysis Right Arm Motor (10 sec hold): No drift Left Arm Motor (10 sec hold): No movement Right Leg Motor (5 sec hold): No drift Left Leg Motor (5 sec hold): No drift Limb Ataxia (finger/nose heel/jorge): Absent Sensory Loss (pinprick arms/legs/face): No sensory loss Language Aphasia (description/naming/reading): No aphasia; normal Dysarthria (speech clarity): Slurring, intelligeble Neglect Inattention (visual/tactile/auditory/spatial/person): No neglect Secondary Stroke Scale Total:: 8 - Results of Tests Evidence of acute intracranial bleed: No Progress - Results and Orders Patient's Lab Results:: I have reviewed the patient's lab results. Results and Orders: Laboratory Tests 03/10/21 03/10/21 03/10/21 17:10 17:10 17:10 WBC 6.6 RBC 4.34 L Hgb 14.0 Hct 43.0 MCV 99.1 MCH 32.3 H MCHC 32.6 RDW 14.3 H Plt Count 173 MPV 9.5 Immature Gran % (Auto) 0.50 H Immature Gran # (Auto) 0.03 Neutrophils % 64.8 Lymphocytes % 22.9 PT 10.7 INR (Anticoag Therapy) 1.03 Sodium 141 Plasma Sodium 141 Potassium 3.8 Chloride 105 Carbon Dioxide 26.0 Anion Gap 13.8 BUN 15 Creatinine 1.01 Est GFR (Non-Af Amer) 74 BUN/Creatinine Ratio 14.9 Random Glucose 87 Calcium 8.9 Calcium Adj for Albumin 8.7 Total Bilirubin 1.2 H AST 19 ALT 24 Alkaline Phosphatase 68 Troponin I Less than 0.017 B-Natriuretic Peptide 568 Total Protein 7.2 Albumin 3.9 - Vital Signs Vital Signs: Vital Signs 03/10/21 16:34 03/10/21 16:41 Temperature 36.8 C Pulse Rate 90 80 Respiratory Rate 16 Blood Pressure 145/85 O2 Sat by Pulse Oximetry 93 - X-Ray X-Ray #1 X-Ray: chest Interpretation: Interp. by mi X-ray Comments: [address] [place] [address] NAME: Ronal Diaz : 08/04/1950 MR #: [id number] CC: LOC: ER ADM DATE: DIS DATE: X-RAY REPORT ~[id number] RAD/Hand Minimum 3 Views LT *~ Exam Date: 03/10/2021 08:27 Ordering Physician: Livan Arias MD Hand Minimum 3 Views LT * TECHNIQUE: PA, lateral, and oblique views INDICATION: hand injury with difficulty. Pain in fourth digit. Contrast enhancement on steering wheel yesterday. COMPARISON: None. FINDINGS/IMPRESSION: There is no acute fracture or dislocation. 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 The soft tissues are normal. If there is persistent concern for a radiographically occult fracture, repeat radiograph in 5-10 days could be performed. Electronically signed by Alyssia Marie D.O.. Alyssia Marie DO Dict: 03/10/21842 Typed: 03/10/21842/ 03/10/[address] [place] [address] NAME: Ronal Diaz : 08/04/1950 MR #: [id number] CC: LOC: ER ADM DATE: DIS DATE: X-RAY REPORT ~[id number] RAD/Hand Minimum 3 Views LT *~ Exam Date: 03/10/2021 08:27 Ordering Physician: Livan Arias MD Hand Minimum 3 Views LT * TECHNIQUE: PA, lateral, and oblique views INDICATION: hand injury with difficulty. Pain in fourth digit. Contrast enhancement on steering wheel yesterday. COMPARISON: None. FINDINGS/IMPRESSION: There is no acute fracture or dislocation. 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 The soft tissues are normal. If there is persistent concern for a radiographically occult fracture, repeat radiograph in 5-10 days could be performed. Electronically signed by Alyssia Marie D.O.. Alyssia Marie DO Dict: 03/10/21842 Typed: 03/10/2103/10/2147 - CT/Ultrasound CT/Ultrasound Narrative: [address] [place] [address] NAME: Shaheed Francis : 1935 MR #: [id number] CC: LOC: ER ADM DATE: DIS DATE: X-RAY REPORT ~[id number] CT/CT Head W/O *~ Exam Date: 03/10/2021 17:20 Ordering Physician: Livan Arias MD CT Head W/O * History: cva weakness, confusion today. History of CVA. Technique: Continuous unenhanced axial CT images were acquired through the brain according to standard protocol. Individualized dose optimization technique was used for the performed procedure including automated exposure control, adjustment of the mA and/or kV according to patient size and/or the iterative reconstruction technique. Comparison: Prior exams, most recent is MRI dated March 31, 2020. Findings: There is borderline disproportionate ventricular enlargement relative to the degree of volume loss; correlate for normal pressure hydrocephalus. Chronic microvascular ischemic white matter changes noted. Chronic appearing bilateral basal ganglia lacunar infarcts. No acute intracranial hemorrhage. No midline shift or herniation. No mass or mass effect. The cortical leavitt/white matter differentiation is grossly intact. Benign intracranial calcifications noted. Atherosclerotic changes noted at the skull base. Ethmoid air cell mucosal thickening. Right greater than left maxillary sinus mucosal thickening with small air-fluid levels; question sinusitis. Changes from cataract surgery,Calvarium is intact. Soft tissues are unremarkable. IMPRESSION: No acute intracranial hemorrhage or mass effect. Additional findings and comments are as above. Electronically signed by Danny Maldonado D.O.. Danny Maldonado DO - Progress/Reassessment Chief Complaint: Altered Mental Status Progress:: Improved Progress Note-Subjective: 03/10/21 17:59 Repeat NIH scale patient was able to get up and walk to the bathroom he was dragging both feet started stopping but was able to stand by the toilet bowl also walked back to the chair without assistance. Facial droop also seems to be improved Plan - Plan Plan: Patient to be admitted to the hospital and to have an MRI in the morning Dr. Parish primary care physician the patient has accepted Departure Clinical Impression: CVA, old, dysarthria, TIA (transient ischemic attack), Acute CVA (cerebrovascular accident) - Departure Disposition: Short Term Hospital Inpatient Condition: Fair
[2021-03-10 17:22] LABS: Mean Cell Volume 99.1 fl (78-100); Mean Corpuscular Hemoglobin 32.3 pg (27-31); Mean Corpuscular Hgb Conc 32.6 g/dl (32-36); Mean Platelet Volume 9.5 fl (8-11.3); Neutrophil # 4.3 K/mm3 (1.3-6.0); Neutrophil % 64.8 % (42-75.0); Platelet Count 173 K/mm3 (150-450); Red Blood Count 4.34 M/mm3 (4.7-6.0); Red Cell Distribution Width 14.3 % (11.5-14.0); White Blood Count 6.6 K/mm3 (4.0-10.5)
[2021-03-10 17:26] LABS: Prothrombin Time (Patient) 10.7 Seconds (9.1-10.7)
[2021-03-10 17:27] LABS: INR 1.03 INR (0.92-1.08)
[2021-03-10 17:36] LABS: ALT 24 U/L (19-67); AST 19 U/L (0-48); Albumin * 3.9 gm/dl (3.4-5.0); Alkaline Phosphatase * 68 U/L (50-170); Anion Gap 13.8 mmol/L (6.8-13.8); BNP * 568 pg/mL (5-650); BUN/Creatinine Ratio 14.9 (9.0-21.6); Bilirubin, Total 1.2 mg/dL (0.0-1.1); Blood Urea Nitrogen 15 mg/dL (6-23); Ca. Corrected For Albumin 8.7 mg/dL (8.4-10.2); Calcium * 8.9 mg/dL (7.9-10.9); Chloride 105 mmol/L (97-106); Glucose * 87 mg/dL (70-110); Potassium 3.8 mmol/L (3.4-4.6); Sodium 141 mmol/L (132-142); Total Protein 7.2 gm/dL (6.2-8.2)
[2021-03-10 17:38] LABS: Troponin I Less than 0.017 ng/mL (0.00-0.10)
[2021-03-10 17:59] LABS: Urine Bilirubin Negative (NEGATIVE); Urine Blood Negative /ul (NEGATIVE); Urine Ketone 15 mg/dL (NEGATIVE); Urine Nitrite Negative (NEGATIVE); Urine Protein Negative (NEGATIVE); Urine Urobilinogen Normal (NORMAL)
[2021-03-10 18:12] LABS: Urine Appearance Clear (CLEAR); Urine Bacteria TRACE; Urine Color Dark Yellow; Urine RBC None Seen /hpf (0-5); Urine WBC 0-5 /hpf (0-5)
[2021-03-10] MEDS ORDERED: ASPIRIN 325 MG TABLET.DR PO ONE (20:53)
[2021-03-10] MEDS: BETA-CAROTENE(A) W-C , E/MIN 1 TAB TABLET PO SCH (21:38)
[2021-03-10] MEDS: DONEPEZIL HCL 10 MG TABLET PO SCH (21:38)
[2021-03-10] MEDS: ROSUVASTATIN CALCIUM 20 MG TABLET PO SCH (21:38)
[2021-03-10] MEDS: CALCIUM CARBONATE/VITAMIN D3 1 TAB TABLET PO SCH (21:38)
--- NOTE | 2021-03-11 07:19 | HP ---
Chief Complaint - Chief Complaint Date of Service: 03/11/21 Time of Service: 07:06 Chief Complaint: weakness, facial droop, impaired speech, confusion, difficulty walking, difficulty standing History of Present Illness: Shaheed arevalo is an 85-year-old white male with past medical history significant for hypertension, hyperlipidemia, dementia, history of left thalamic stroke, dysarthria, BPH who was admitted on 03/10/2021 for weakness, left facial droop, confusion, difficulty ambulating. As per his she went to work around 12:30 in the afternoon and when she came home at 4 PM she noticed that the patient's face was ashen and leavitt. She also noticed left facial droop and she does not think this was there when he had his thalamic stroke in the past. He also had difficulty of ambulating and standing, weakness, slurred speech and so she brought her to the emergency room where his blood work were unremarkable. His EKG showed NSR. His CXR showed no acute cardiopulmonary findings,. Borderline cardiac enlargement. His head CT scan showed-IMPRESSION: No acute intracranial hemorrhage or mass effect. Additional findings and comments are as above. There was borderline disproportionate ventricular enlargement relative to the degree of volume loss correlate for normal pressure hydrocephalus. He was then admitted for further evaluation and treatment. Medical History (Last Reviewed 03/10/21 @ 20:23 by Nelsy Marshall RN) COVID-19 vaccine administered (Acute) Anemia Onset Date: Unknown BPH (benign prostatic hyperplasia) Onset Date: Unknown Cervical spondylosis Onset Date: Unknown GERD (gastroesophageal reflux disease) Onset Date: Unknown Hyperlipidemia Onset Date: Unknown Hypertension Onset Date: Unknown Phlebitis and thrombophlebitis of lower extremities Onset Date: Unknown Superficial Vessels Varicose veins of both lower extremities Onset Date: Unknown Surgical History: Surgical History (Last Reviewed 03/10/21 @ 20:23 by Nelsy Marshall RN) Abnormal colonoscopy Onset Date: 01/04/10 Dr. Thayer-hyperplastic polyp benign H/O arthroscopic knee surgery Onset Date: Unknown H/O cystourethroscopy Onset Date: 10/04/06 Dr. Juan Alberto Gao MD-uroflow study done also at this time and on 02/23/07 H/O local excision of skin lesion Onset Date: 11/26/03 Dr. 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) Family History: Family History (Last Reviewed 03/10/21 @ 20:24 by Nelsy Marshall RN) Brother , 66 Diabetes Father , 76 CVA (cerebral vascular accident) Heart disease Coronary artery disease Mother , 73 Cancer Social History: (Last Reviewed 03/10/21 @ 16:40 by Pamela Urrutia RN) Social History: household members: spouse current occupational status: retired Service: Yes branch: [employer] Tobacco: Smoking Status: Former smoker Alcohol: alcohol intake: current alcohol intake frequency: 3 or more drinks per day details: 20-28 drinks/wk for 50 years Substance Use: substance use type: does not use Dietary Habits: caffeine: Yes Personal Safety: victim of physical abuse: No victim of emotional abuse: No Review Of Systems (GEN) - Review of Systems Generalized/Overall Review: Present: Weakness. Absent: Chills, Fever EENTM: Absent: Double Vision Respiratory: Absent: Cough, Shortness of Breath, Orthopnea Cardiac: Absent: Chest Pain, Edema, Palpitations Abdominal: Absent: Nausea, Vomiting, Hematemesis Genitourinary: Present: Incontinent. Absent: Urgency, Frequency Musculoskeletal: Present: Joint Pain. Absent: Back Pain Neurological: Present: Weakness. Absent: Headache, Seizure, Tremors Skin: Absent: Lesions, Rash Misc: All systems neg except as marked Immunizations: IMMUNIZATION HX Immunizations Up to Date Yes Immunizations Comment had both covid shots History of Influenza Vaccine Yes Hx Pneumococcal Vaccination No Allergies/Adverse Reactions: Allergies Allergy/AdvReac Type Severity Reaction Status Date / Time bacitracin AdvReac Intermediate Other Verified 12/15/20 15:34 [From Triple Antibiotic] neomycin AdvReac Intermediate Other Verified 12/15/20 15:34 [From Triple Antibiotic] polymyxin B AdvReac Intermediate Other Verified 12/15/20 15:34 [From Triple Antibiotic] Seasonal Allergies Allergy Intermediate rhinitis, Uncoded 10/28/20 18:31 watery eyes bruit deodorant AdvReac Intermediate Redness Uncoded 10/28/20 18:31 Home Medications: HOME MEDICATIONS cyanocobalamin (vitamin B-12) 1,000 mcg tablet 1,000 mcg PO 3XW 06/04/18 [Last Taken 11/11/18 08:00] Calcium Carbonate/Vitamin D3 [Calcium 500 mg-Vit D3 600 Unit] 1 tab.chew PO BID 11/09/18 [Last Taken 03/10/21] Vitamin E 1,000 units PO DAILY 11/09/18 [Last Taken 03/10/21 08:00] Preservision Areds 2 Softgel 1 cap PO BID 11/11/18 [Last Taken 03/10/21] lisinopril 20 mg tablet 20 mg PO DAILY #90 tab 09/22/20 [Last Taken Unknown] rosuvastatin 20 mg tablet 20 mg PO HS #90 tab 09/22/20 [Last Taken 03/09/21] Donepezil HCl 10 mg PO HS 10/28/20 [Last Taken 03/09/21] clopidogrel 75 mg tablet 75 mg PO DAILY #30 tab 11/18/20 [Last Taken Unknown] tamsulosin 0.4 mg capsule 0.4 mg PO DAILY #90 cap 11/23/20 [Last Taken Unknown] Exam - Exam Vital Signs: Vital Signs - Last Taken Temp 36.7 C 03/11/21 02:00 Pulse 54 L 03/11/21 02:00 Resp 16 03/11/21 02:00 BP 147/69 03/11/21 02:00 Pulse Ox 95 03/11/21 02:00 Constitutional: Present: Alert - Awake alert oriented x1, Cooperative, Elderly ENT Exam: Present: hearing grossly normal Eye Exam: bilateral eye: normal inspection, PERRL, EOMI Neck: Present: supple. Absent: lymphadenopathy (R), lymphadenopathy (L) Respiratory: Present: normal breath sounds, No rales, No wheezing Cardiovascular/Chest: Present: regular rate, rhythm, no JVD, systolic murmur Abdomen: Present: Normal bowel sounds, soft, nontender, nondistended Extremity: Present: no pedal edema, no calf tenderness Neurologic: Present: alert, other - Awake alert oriented x1, mild left facial droop, mild aphasia/dysarthria, tongue slightly deviated to the right, bilateral shrimp cleaner equal, bilateral lower extremity mild weakness (RUE weaker than LLE)-able to ambulate without the walker with small steps, short distance only, ataxic gait Diagnostic Studies: Abnormal Lab Results 03/10/21 03/10/21 Range/Units 17:10 17:10 RBC 4.34 L (4.7-6.0) M/mm3 MCH 32.3 H (27-31) pg RDW 14.3 H (11.5-14.0) % Immature Gran % (Auto) 0.50 H (0.001-0.429) % Total Bilirubin 1.2 H (0.0-1.1) mg/dL Laboratory Results WBC 6.6 K/mm3 (4.0-10.5) 03/10/21 17:10 RBC 4.34 M/mm3 (4.7-6.0) L 03/10/21 17:10 Hgb 14.0 gm/dL (13.5-18.0) 03/10/21 17:10 Hct 43.0 % (42.0-52.0) 03/10/21 17:10 MCV 99.1 fl (78-100) 03/10/21 17:10 MCH 32.3 pg (27-31) H 03/10/21 17:10 MCHC 32.6 g/dl (32-36) 03/10/21 17:10 RDW 14.3 % (11.5-14.0) H 03/10/21 17:10 Plt Count 173 K/mm3 (150-450) 03/10/21 17:10 MPV 9.5 fl (8-11.3) 03/10/21 17:10 Immature Gran % (Auto) 0.50 % (0.001-0.429) H 03/10/21 17:10 Immature Gran # (Auto) 0.03 K/mm3 (0.000-0.0310) 03/10/21 17:10 Neutrophils % 64.8 % (42-75.0) 03/10/21 17:10 Lymphocytes % 22.9 % (20-51) 03/10/21 17:10 Monocytes % 9.0 % (0.0-9) 03/10/21 17:10 Eosinophils % 2.6 % (0.0-3.0) 03/10/21 17:10 Basophils % 0.2 % (0.0-1.0) 03/10/21 17:10 Nucleated RBC % 0.0 k/mm3 (0-1) 03/10/21 17:10 Neutrophils # 4.3 K/mm3 (1.3-6.0) 03/10/21 17:10 Lymphocytes # 1.50 k/mm3 (1.5-3.5) 03/10/21 17:10 Monocytes # 0.6 k/mm3 (0.0-1.0) 03/10/21 17:10 Eosinophils # 0.2 k/mm3 (0.0-0.7) 03/10/21 17:10 Absolute Basophils 0.0 k/mm3 (0.0-0.1) 03/10/21 17:10 PT 10.7 Seconds (9.1-10.7) 03/10/21 17:10 INR (Anticoag Therapy) 1.03 INR (0.92-1.08) 03/10/21 17:10 Sodium 141 mmol/L (132-142) 03/10/21 17:10 Plasma Sodium 141 mmol/L (130-142) 03/10/21 17:10 Potassium 3.8 mmol/L (3.4-4.6) 03/10/21 17:10 Chloride 105 mmol/L (97-106) 03/10/21 17:10 Carbon Dioxide 26.0 mmol/L (24-32.6) 03/10/21 17:10 Anion Gap 13.8 mmol/L (6.8-13.8) 03/10/21 17:10 BUN 15 mg/dL (6-23) 03/10/21 17:10 Creatinine 1.01 mg/dL (0.4-1.4) 03/10/21 17:10 Est GFR (Non-Af Amer) 74 mL/min (60-130) 03/10/21 17:10 BUN/Creatinine Ratio 14.9 (9.0-21.6) 03/10/21 17:10 Random Glucose 87 mg/dL (70-110) 03/10/21 17:10 Calcium 8.9 mg/dL (7.9-10.9) 03/10/21 17:10 Calcium Adj for Albumin 8.7 mg/dL (8.4-10.2) 03/10/21 17:10 Total Bilirubin 1.2 mg/dL (0.0-1.1) H 03/10/21 17:10 AST 19 U/L (0-48) 03/10/21 17:10 ALT 24 U/L (19-67) 03/10/21 17:10 Alkaline Phosphatase 68 U/L (50-170) 03/10/21 17:10 Troponin I Less than 0.017 ng/mL (0.00-0.10) 03/10/21 17:10 B-Natriuretic Peptide 568 pg/mL (5-650) 03/10/21 17:10 Total Protein 7.2 gm/dL (6.2-8.2) 03/10/21 17:10 Albumin 3.9 gm/dl (3.4-5.0) 03/10/21 17:10 Urine Color Dark yellow 03/10/21 17:51 Urine Appearance Clear (CLEAR) 03/10/21 17:51 Urine pH 6.0 pH (5.0-7.0) 03/10/21 17:51 Ur Specific [place] 1.020 SP.GR. (1.005-1.030) 03/10/21 17:51 Urine Protein Negative mg/dL (NEGATIVE) 03/10/21 17:51 Urine Glucose (UA) Negative mg/dL (NEGATIVE) 03/10/21 17:51 Urine Ketones 15 mg/dL (NEGATIVE) 03/10/21 17:51 Urine Blood Negative /ul (NEGATIVE) 03/10/21 17:51 Urine Nitrate Negative (NEGATIVE) 03/10/21 17:51 Urine Bilirubin Negative mg/dl (NEGATIVE) 03/10/21 17:51 Urine Urobilinogen Normal EU/dl (NORMAL) 03/10/21 17:51 Ur Leukocyte Esterase Negative /ul (NEGATIVE) 03/10/21 17:51 Urine RBC None seen /hpf (0-5) 03/10/21 17:51 Urine WBC 0-5 /hpf (0-5) 03/10/21 17:51 Ur Epithelial Cells Trace /hpf (0-5) 03/10/21 17:51 Calcium Oxalate Crystal Trace /hpf (NONE) 03/10/21 17:51 Urine Bacteria Trace (NONE) 03/10/21 17:51 Urine Culture Comments No culture indicated 03/10/21 17:51 SARS-CoV-2 (PCR) Not detected (NotDetected) 03/10/21 18:19 Assessment/Plan - Narrative Narrative: Shaheed was admitted for left facial droop, difficulty of ambulation, weakness. Head CT scan showed no acute intracranial process. Borderline ventriculomegaly consider normal pressure hydrocephalus. Admitting impression is TIA/CVA. I discussed with the that this could be a mini stroke or CVA and we will get an MRI today. This will also give us more information about possible normal pressure hydrocephalus. I told her that NPH presents with cognitive impairment, gait instabilty and urinary incontinence. He does have dementia and is on Donepezil for it ( Alzheimers vs multinfarct dementia). His gait instability is likely due to his residual from prior stroke or new stroke on top of his old. He has BPH and has no h/o urinary incontinence. I gave him 325 mg of aspirin x 1 last night He is on daily Plavix. I told the that the risk of bleeding is higher with 2 antiplatelets. We will start him on Aggrenox tomorrow. His CUS in 2019 showed less than 25 % reduction in diameter. His Echo showed negative bubble study. He has no h/o AFib. We will get PT/OT/ST evaluation. ADDENDUM: The MRI room is not serviceable today and his MRI will not be done today. Will keep him on observation status and do MRI tomorrow. ADDENDUM: Jillian says we don't carry Aggrenox anymore. Will put him back on his Plavix Q daily and add the baby ASA Q daily for a few weeks then go back to his single antiplatelet therapy. - Assessment/Plan (1) TIA (transient ischemic attack) Assessment: vs CVA vs NPH ( unlikely) Problem: Acute (2) Ataxia Problem: Acute (3) Aphasia Problem: Acute (4) Weakness Problem: Acute (5) Dementia Problem: Chronic Qualifiers: Dementia type: unspecified type Dementia behavioral disturbance: without behavioral disturbance Qualified Code(s): F03.90 - Unspecified dementia without behavioral disturbance (6) History of CVA (cerebrovascular accident) Assessment: lacunar infarct, left thalamic stroke Problem: Chronic (7) Hypertension Problem: Chronic Qualifiers: Hypertension type: essential hypertension Qualified Code(s): I10 - Essential (primary) hypertension (8) Hyperlipidemia Problem: Chronic Qualifiers: Hyperlipidemia type: pure hypercholesterolemia Qualified Code(s): E78.00 - Pure hypercholesterolemia, unspecified (9) BPH (benign prostatic hyperplasia) Problem: Chronic Qualifiers: Lower urinary tract symptom presence: symptoms absent Qualified Code(s): N40.0 - Benign prostatic hyperplasia without lower urinary tract symptoms
[2021-03-11] MEDS ORDERED: TAMSULOSIN HCL 0.4 MG CAP.SR.24H PO SCH ×2 (09:00→18:00)
[2021-03-11] MEDS: CLOPIDOGREL BISULFATE 75 MG TABLET PO SCH (10:05)
[2021-03-11] MEDS: LISINOPRIL 20 MG TABLET PO SCH (10:05)
[2021-03-11] MEDS: BETA-CAROTENE(A) W-C , E/MIN 1 TAB TABLET PO SCH ×2 (10:05→21:42)
[2021-03-11] MEDS: CALCIUM CARBONATE/VITAMIN D3 1 TAB TABLET PO SCH ×2 (10:05→21:42)
[2021-03-11] MEDS: VITAMIN E (DL,TOCOPHERYL ACET) 400 UNITS CAPSULE PO SCH (10:14)
[2021-03-11] MEDS: DONEPEZIL HCL 10 MG TABLET PO SCH (21:41)
[2021-03-11] MEDS: ROSUVASTATIN CALCIUM 20 MG TABLET PO SCH (21:43)
[2021-03-12] MEDS ORDERED: ASPIRIN 81 MG TABLET.DR PO SCH (09:00)
[2021-03-12] MEDS ORDERED: ASPIRIN PO SCH (09:00)
[2021-03-12] MEDS ORDERED: CYANOCOBALAMIN 1,000 MCG TABLET PO SCH (09:00)
[2021-03-12] MEDS ORDERED: DIPYRIDAMOLE PO SCH (09:00)
[2021-03-12] MEDS: CLOPIDOGREL BISULFATE 75 MG TABLET PO SCH (09:34)
[2021-03-12] MEDS: BETA-CAROTENE(A) W-C , E/MIN 1 TAB TABLET PO SCH (09:34)
[2021-03-12] MEDS: CALCIUM CARBONATE/VITAMIN D3 1 TAB TABLET PO SCH (09:34)
[2021-03-12] MEDS: VITAMIN E (DL,TOCOPHERYL ACET) 400 UNITS CAPSULE PO SCH (09:35)
[2021-03-12] MEDS: LISINOPRIL 20 MG TABLET PO SCH (09:36)
--- NOTE | 2021-03-12 10:07 | PN ---
Subjective - Date and Time Seen Date: 03/12/21 Time: 10:01 Subjective Narrative: I feel okay Objective Objective Narrative: 85-year-old male was admitted for An apparent TIA with new neurological symptoms that started 2 days ago. Upon arrival the patient had a head CT that was negative for any acute findings however MRI was recommended. The Brain MRI was ordered 2 days ago however the machine was down yesterday delaying the imaging from being done. We are repairs taking place in the machine today and we are hopeful that by noon the patient will have his imaging done for further evaluation of his neurological deficits. At bedside this morning he appeared to be in a pleasant mood and was comfortably sitting up in his chair. Left facial droop was noted with significant dysarthria, however I understand that he has a history of dysarthria so I do not think this is new. His motor strength appears to be intact and there was no new deficits noted. We will follow up with MRI results for further evaluation. Patient is tolerating in-hospital PT OT and speech therapy without any issues, recommendation for further therapy on outpatient basis was also made. - Review of Systems Generalized/Overall Review: Reports: No Symptoms Reported EENTM: Reports: No Symptoms Reported Respiratory: Reports: No Symptoms Reported Cardiac: Reports: No Symptoms Reported Abdominal: Reports: No Symptoms Reported Genitourinary Symptoms: Reports: No Symptoms Reported Musculoskeletal Complaints: Reports: No Symptoms Reported Neurological: Reports: Pre-existing Deficit Skin: Reports: No Symptoms Reported Endocrine: Reports: No Symptoms Reported - Vitals Vitals: Last Vital Signs Temp 36.6 C 03/12/21 02:00 Pulse 62 03/12/21 09:36 Resp 16 03/12/21 02:00 BP 167/67 H 03/12/21 09:36 Pulse Ox 94 03/12/21 02:00 - Exam Constitutional: Present: Alert, Oriented x3, Cooperative, Well developed, Well nourished, No distress, Elderly ENT Exam: Present: normal ENT inspection, hard of hearing Neck: Present: non-tender Breasts: Present: Exam deferred, Nontender Respiratory: Present: chest non-tender, lungs clear, normal breath sounds, no respiratory distress, no accessory muscle use Cardiovascular/Chest: Present: normal peripheral pulses, regular rate, rhythm, no chest tenderness, no edema, no gallop, no JVD Abdomen: Present: Normal bowel sounds, soft, nontender, nondistended, no rebound tenderness, no hepatospenomegaly, no masses /Rectal: Present: Exam deferred Extremity: Present: normal range of motion, non-tender, normal inspection, no pedal edema, no calf tenderness, normal capillary refill Skin Exam: Present: normal color, warm/dry, no cyanosis Lymphatic: Present: no adenopathy Neurologic: Present: alert, abnormal cupola charger insulation II-XII, aphasia, facial droop Appearance: Present: neat, impaired insight, impaired recent memory, impaired remote memory Eye contact: Present: cooperative, good eye contact Thoughts: Present: no apparent hallucination Assessment/Plan Plan Narrative: MRI results once they are available, in the meantime in hospital physical speech and occupational therapy will continue. Patient is currently on statins, aspirin,and Plavix which he is tolerating without issues. - Problems/Diagnosis (1) Hypertension Problem: Chronic Qualifiers: Hypertension type: essential hypertension Qualified Code(s): I10 - Essential (primary) hypertension (2) Hyperlipidemia Problem: Chronic Qualifiers: Hyperlipidemia type: pure hypercholesterolemia Qualified Code(s): E78.00 - Pure hypercholesterolemia, unspecified (3) BPH (benign prostatic hyperplasia) Problem: Chronic Qualifiers: Lower urinary tract symptom presence: symptoms absent Qualified Code(s): N40.0 - Benign prostatic hyperplasia without lower urinary tract symptoms (4) Dysarthria Problem: Acute (5) CVA, old, dysarthria Problem: Acute (6) TIA (transient ischemic attack) Problem: Acute (7) Aphasia Problem: Acute (8) Weakness Problem: Acute (9) Dementia Problem: Chronic Qualifiers: Dementia type: unspecified type Dementia behavioral disturbance: without behavioral disturbance Qualified Code(s): F03.90 - Unspecified dementia without behavioral disturbance (10) Memory problem Problem: Acute (11) Gastroesophageal reflux disease Problem: Chronic Qualifiers: Esophagitis presence: esophagitis presence not specified Qualified Code(s): K21.9 - Gastro-esophageal reflux disease without esophagitis
--- NOTE | 2021-03-12 17:13 | DS ---
(1) Hypertension Problem: Chronic Qualifiers: Hypertension type: essential hypertension Qualified Code(s): I10 - Essential (primary) hypertension (2) Hyperlipidemia Problem: Chronic Qualifiers: Hyperlipidemia type: pure hypercholesterolemia Qualified Code(s): E78.00 - Pure hypercholesterolemia, unspecified (3) BPH (benign prostatic hyperplasia) Problem: Chronic Qualifiers: Lower urinary tract symptom presence: symptoms absent Qualified Code(s): N40.0 - Benign prostatic hyperplasia without lower urinary tract symptoms (4) Dysarthria Problem: Chronic (5) CVA, old, dysarthria Problem: Chronic (6) TIA (transient ischemic attack) Problem: Acute (7) Aphasia Problem: Chronic (8) Weakness Problem: Acute (9) Dementia Problem: Chronic Qualifiers: Dementia type: unspecified type Dementia behavioral disturbance: without behavioral disturbance Qualified Code(s): F03.90 - Unspecified dementia without behavioral disturbance (10) Memory problem Problem: Chronic (11) Gastroesophageal reflux disease Problem: Chronic Qualifiers: Esophagitis presence: esophagitis presence not specified Qualified Code(s): K21.9 - Gastro-esophageal reflux disease without esophagitis Date of Discharge:: 03/12/21 Hospital Course: 85-year-old male was admitted for a suspected CVA 2 days ago when his discovered the patient more confused than usual and presenting with difficulty ambulating due to weakness in his lower extremities and poor balance. The patient has had multiple strokes in the past the most severe one Occurring 2 Years Ago, however after undergoing rehab for several months the patient was able to regain most of his properties and function. A year later he suffered another minor stroke that left him with significant dysarthria and aphasia and a left-sided facial droop. However she reports Monday morning he was his usual self but when she returned from work in the afternoon she noticed new motor weakness, poor balance and problems with speech. There is also worsening of his left facial droop. Upon arriving to the hospital the patient underwent a head CT which was negative for any acute findings but MRI was recommended, however due to the MRI machine being out of order we were unable to get the imaging. Therefore we will schedule for the MRI to be done on outpatient basis and for the patient to follow-up with his PCP. The patient as well as his are in agreement with this plan and has agreed for him to be discharged home. Home health services have also been arranged so that the patient can continue his PT and OT as well as nursing services. Due to significant issues with ambulation and balance as well as other neurological deficits this patient is homebound and will need retirement to manage his routine medications as well as physical therapy to address issues with ambulation and balance and neurological symptoms. The patient will also need occupational therapy to regain skills and manage activities of daily living. The need for home health care skilled services is directly related to the time spent [id number] with the patient. Procedures Performed: none Results and Findings: Lab Pending Results 03/10/21 17:10: WBC 6.6, RBC 4.34 L, Hgb 14.0, Hct 43.0, MCV 99.1, MCH 32.3 H, MCHC 32.6, RDW 14.3 H, Plt Count 173, MPV 9.5, Immature Gran % (Auto) 0.50 H, Immature Gran # (Auto) 0.03, Neutrophils % 64.8, Lymphocytes % 22.9, Monocytes % 9.0, Eosinophils % 2.6, Basophils % 0.2, Nucleated RBC % 0.0, Neutrophils # 4.3, Lymphocytes # 1.50, Monocytes # 0.6, Eosinophils # 0.2, Absolute Basophils 0.0 03/10/21 17:10: PT 10.7, INR (Anticoag Therapy) 1.03 03/10/21 17:10: Sodium 141, Plasma Sodium 141, Potassium 3.8, Chloride 105, Carbon Dioxide 26.0, Anion Gap 13.8, BUN 15, Creatinine 1.01, Est GFR (Non-Af Amer) 74, BUN/Creatinine Ratio 14.9, Random Glucose 87, Calcium 8.9, Calcium Adj for Albumin 8.7, Total Bilirubin 1.2 H, AST 19, ALT 24, Alkaline Phosphatase 68, Troponin I Less than 0.017, B-Natriuretic Peptide 568, Total Protein 7.2, Albumin 3.9 03/10/21 17:51: Urine Color Dark yellow, Urine Appearance Clear, Urine pH 6.0, Ur Specific [place] 1.020, Urine Protein Negative, Urine Glucose (UA) Negative, Urine Ketones 15, Urine Blood Negative, Urine Nitrate Negative, Urine Bilirubin Negative, Urine Urobilinogen Normal, Ur Leukocyte Esterase Negative, Urine RBC None seen, Urine WBC 0-5, Ur Epithelial Cells Trace, Calcium Oxalate Crystal Trace, Urine Bacteria Trace, Urine Culture Comments No culture indicated 03/10/21 18:19: SARS-CoV-2 (PCR) Not detected Discharge Location: Home Disposition: Home Health Service Home Health Agency: [facility] Condition: Fair Face to Face Encounter completed per [facility] Guidelines: Yes Discharge Activity: Activity as tolerated Discharge Diet: General/regular food Alf Therapy: Physical Therapy, Occupation Therapy, Speech Therapy Referrals: Etta Parish MD [Primary Care Provider] - Additional Patient Instructions (free text): Follow up Dr. Parish office appointment on MondayMarch 23 at 3:00pm. [facility] may accept for home health at discharge pending reviewing paper work and will call patient at home if they are able to come see him. Prescriptions (Any new or edited meds): Aspirin [Aspirin Chewable] 81 mg PO DAILY #90 tab.chew Transmission Status: Pending to [place], [place] Clopidogrel Bisulfate [Plavix] 75 mg PO DAILY #90 tab Transmission Status: Pending to [place], [place] Rosuvastatin Calcium 20 mg PO HS #90 tab Transmission Status: Pending to [place], [place] Complete Home Medications List: Complete Home Medication List: cyanocobalamin (vitamin B-12) 1,000 mcg tablet 1,000 mcg PO 3XW 06/04/18 Calcium Carbonate/Vitamin D3 [Calcium 500 mg-Vit D3 600 Unit] 1 tab.chew PO BID 11/09/18 Vitamin E 1,000 units PO DAILY 11/09/18 Preservision Areds 2 Softgel 1 cap PO BID 11/11/18 lisinopril 20 mg tablet 20 mg PO DAILY #90 tab 09/22/20 Donepezil HCl 10 mg PO HS 10/28/20 tamsulosin 0.4 mg capsule 0.4 mg PO DAILY #90 cap 11/23/20 Aspirin [Aspirin Chewable] 81 mg PO DAILY #90 tab.chew 03/12/21 Clopidogrel Bisulfate [Plavix] 75 mg PO DAILY #90 tab 03/12/21 Rosuvastatin Calcium 20 mg PO HS #90 tab 03/12/21 Forms: Patient Portal Registration
[2021-03-12 18:20] VITALS: BP 157/79
== END 2021-03-12 18:31 | disposition home or self-care (01) ==
LOC: ER 16:29 → MS 16:29
PROVIDERS: ADMIT Internal Medicine; ATTEND Internal Medicine
DX: G45.9 Transient cerebral ischemic attack, unspecified; I69.992 Facial weakness following unspecified cerebrovascular disease; R41.0 Disorientation, unspecified; E78.5 Hyperlipidemia, unspecified; R53.1 Weakness; Z87.891 Personal history of nicotine dependence; I10 Essential (primary) hypertension; I69.920 Aphasia following unspecified cerebrovascular disease; Z79.01 Long term (current) use of anticoagulants; I69.922 Dysarthria following unspecified cerebrovascular disease; F03.90 Unspecified dementia, unspecified severity, without behavioral disturbance, psychotic disturbance, mood disturbance, and anxiety; K21.9 Gastro-esophageal reflux disease without esophagitis; N40.0 Benign prostatic hyperplasia without lower urinary tract symptoms